=== PATIENT | female | born 1970 | race Caucasian/White ===

== ENCOUNTER 2017-04-11 15:43 | Inpatient (IN) | payer BC ==
[~2017-04-11] VITALS: Ht 162.6 cm; Wt 52.2 kg
[2017-04-11 16:17] VITALS: BP_SYST 132
--- NOTE | 2017-04-11 16:21 | NUR ---
Patient triaged and placed in waiting room. VSS and patient appears in no acute distress at this time. Accompanied by , awaiting available bed, and MD notified of need for MSE.
--- NOTE | 2017-04-11 16:22 | NUR ---
Patient with progessive right eye swelling and redness with green discharge. Patient seen by urgent care given bactrim, vantin and erythromycin with no improvement. seen by Opthomalogist today requesting CT scan
--- NOTE | 2017-04-11 19:10 | NUR ---
Patient to ER bed 7 to gown for evaluation. Side rails up. Report given to Rojas TREVIZO.
[2017-04-11] MEDS ORDERED: IOHEXOL 100 ML IV ONE (19:39)
[2017-04-11] MEDS ORDERED: NACL 0.9% 1,000 ML IV ONE (21:15)
[2017-04-11] MEDS ORDERED: MORPHINE 2 MG/ML INJ. SYRINGE ONE (21:15)
[2017-04-11] MEDS ORDERED: CLINDAMYCIN 300 MG/50 ML D5W 50 ML IV ONE (21:15)
[2017-04-11] MEDS ORDERED: MORPHINE 4 MG/ML INJ. SYRINGE IVP ONE (21:15)
[2017-04-11] MEDS ORDERED: CLINDAMYCIN 600 mg/50mL D5W 50 ML IV ONE (21:16)
[2017-04-11] MEDS ORDERED: ACETAMINOPHEN 325 MG TABLET PO PRN (21:30)
--- NOTE | 2017-04-11 21:32 | NUR ---
Medication reconciliation completed with information provided by patient. Any prior medication reconciliation on file was reviewed and corrected.
[2017-04-11 21:35] LABS: BASOPHILS % (AUTO) 0.7 % (0.0-2.0); EOSINOPHILS # (AUTO) 0.1 K/uL (0.0-0.4); HEMOGLOBIN 9.3 g/dL (12.0-16.0); LYMPHOCYTES # (AUTO) 1.6 K/uL (1.0-5.5); LYMPHOCYTES % (AUTO) 22.7 % (20.5-51.5); MEAN CORPUSCULAR HEMOGLOBIN 22 pg (27-31); MEAN CORPUSCULAR HGB CONC 31 % (32-36); MEAN CORPUSCULAR VOLUME 70 fL (79.0-98.0); MONOCYTES # (AUTO) 0.6 K/uL (0.0-1.0); MONOCYTES % (AUTO) 8.8 % (1.7-9.3); NEUTROPHILS # (AUTO) 4.5 K/uL (1.8-7.7); NEUTROPHILS % (AUTO) 66.8 % (40.0-70.0); PLATELET COUNT (AUTO) 234 K/uL (130-430); RED BLOOD CELL COUNT(AUTO) 4.32 MIL/uL (4.2-6.2); RED CELL DISTRIBUTION WIDTH 17.1 % (9.0-15.0); WHITE BLOOD COUNT (AUTO) 6.8 K/uL (4.8-10.8)
[2017-04-11 21:59] LABS: CALCIUM 9.1 mg/dL (8.4-11.0); CREATININE 1.05 mg/dL (0.55-1.30); POTASSIUM 4.4 mmol/L (3.5-5.1)
[2017-04-11] MEDS ORDERED: cefTRIAXone 2 GM VIAL ONE (22:09)
[2017-04-11 22:14] LABS: ALBUMIN 3.9 g/dL (3.4-4.8); FREE T4 (FREE THYROXINE) 0.5 ng/dL (0.6-1.6); PHOSPHORUS 4.1 mg/dL (2.7-4.5); THYROID STIMULATING HORMONE 1.21 uIu/mL (0.34-4.82); TOTAL BILIRUBIN 0.3 mg/dL (0.0-1.0)
[2017-04-11 22:19] LABS: BILIRUBIN,URINE NEGATIVE (NEGATIVE); BLOOD, URINE TRACE (NEGATIVE); CLARITY/URINE SL HAZY (CLEAR); COLOR,URINE YELLOW (YELLOW); GLUCOSE,URINE NEGATIVE (NEGATIVE); KETONES,URINE TRACE (NEGATIVE); LEUKOCYTE ESTERASE ,URINE NEGATIVE (NEGATIVE); NITRITE, URINE NEGATIVE (NEGATIVE); PROTEIN URINE NEGATIVE (NEGATIVE); UROBILINOGEN,URINE 0.2 (0.2-1.0)
[2017-04-11 22:32] LABS: WBC,URINE 0-3 /HPF (0-3)
[2017-04-11 22:33] LABS: BACTERIA,URINE FEW /HPF (None Seen)
[2017-04-11 22:36] LABS: MUCUS,URINE 3+ /LPF (None Seen)
[2017-04-11 23:30] VITALS: BP_SYST 112
--- NOTE | 2017-04-11 23:30 | NUR ---
pt.admitted via the er-dept.pt.presents general stable status.pt.aaa/ox4.loc.pt.ambulatory;independent. v/s presents stable values w/in normal limits.pt.presents rt.eye infection process.upon assessment, pt.presents tender eye lid;upper,eye presents photophobia reaction.pt.states visual acuity blurred. i inquired if the pt.had presented the flu,common-cold,contact w/ pets,exotic animals,children,people w/infectious skin lesions,pt.stated no to all possibilities.pt.states the symptoms presented self w/in 1 24hr period.will f/u w/.tom's orders.call light/telephone demonstrated to pt;/@bedside. return demonstration satisfactory.
--- NOTE | 2017-04-11 23:30 | NUR ---
Patient will be admitted to care of DR. BRODERICK Admitted to MED SURG unit. Will go to room 124 B. Belongings list completed. Summary report printed. Report will be given at bedside. Transfer to [facility]. IV present no sign or symptom of infiltration.
[2017-04-12] MEDS ORDERED: VANCOMYCIN HCL 1,000 MG in NS 250 ML IV ONE ×2
[2017-04-12] MEDS: NACL 0.9% 1,000 ML IV SCH ×3 (00:51→22:48)
[2017-04-12] MEDS: MORPHINE 2 MG/ML INJ. SYRINGE IVP PRN ×2 (01:05→09:05)
[2017-04-12] MEDS ORDERED: metroNIDAZOLE 500 mg/NS 200 ML IV ONE ×2 (02:08)
[2017-04-12] MEDS ORDERED: VANCOMYCIN HCL 1000 MG/VIAL IV ONE (02:09)
--- NOTE | 2017-04-12 06:45 | NUR ---
pt.assessed.i have continued w/f/u 's orders.i have initiated the administration of the maintanance iv fluids: ns@60ml/hr.i have administered the initial the abx;ivpb's:flagyl,vancomycin.i have administered morphine;2mg ivp x1 pt.stated the morphine was efficatious.i have provided snacks.i have provided a reclinner chair to the .i have reestablished iv access;lt.hand:#24.i have photographed the rt.eye.call light/telephone w/in the pt's reach.
--- NOTE | 2017-04-12 08:00 | NUR ---
OPENING NOTE: RECEIVED REPORT FROM NIGHT NURSE. PATIENT IS RESTING COMFORTABLY IN BED. NO S/S OF DISTRESS OR SOB. PATIENT IS ALERT AND ORIENTED, ABLE TO EXPRESS NEEDS, AND ASK FOR ASSISTANCE. IV IS PATENT AND INFUSING. EYE IS SWOLLEN SHUT, STATES THAT PAIN IS COMING BACK. PATIENT AMBULATED TO THE BATHROOM, STEADY GAIT. VITAL SIGNS WNL, ASSESSMENT COMPLETE. CALL LIGHT IN REACH, BED IN LOWEST POSITION, AND WILL CONTINUE TO MONITOR.
[2017-04-12 08:14] VITALS: BP_SYST 98
[2017-04-12 08:22] LABS: CHOLESTEROL 174 mg/dL (<200); HDL CHOLESTEROL 36 mg/dL (>55); LDL CHOLESTEROL 110 mg/dL (<100); TRIGLYCERIDES 105 mg/dL (30-150)
[2017-04-12] MEDS: LACTOBACILLUS RHAMNOSUS GG 1 CAP CAPSULE PO SCH ×2 (09:04→21:01)
[2017-04-12] MEDS: MULTIVITS,CA,MINERALS/IRON/FA 1 TABLET PO SCH (09:04)
[2017-04-12] MEDS: metroNIDAZOLE 500 mg/NS 200 ML IV SCH ×2 (09:04→21:03)
[2017-04-12] MEDS: DOCUSATE SODIUM 100 MG CAPSULE PO SCH ×2 (09:04→21:01)
[2017-04-12] MEDS: ONDANSETRON HCL 4 MG/2 ML VIAL IVP PRN (09:06)
--- NOTE | 2017-04-12 10:00 | NUR ---
NOTE: PATIENT IS RESTING COMFORTABLY IN BED. NO S/S OF DISTRESS OR SOB. PATIENT IS AWAKE AND ALERT. AT BEDSIDE. NO NEEDS AT THIS TIME. CALL LIGHT IN REACH, BED IN LOWEST POSITION, AND WILL CONTINUE TO MONITOR.
--- NOTE | 2017-04-12 10:04 | NUR ---
Wound Evaluation: Wound Consult ordered for Low Gus Score. Patient evaluated for a Gus score of 22. Patient was awake, alert, oriented, and received in a [place] Bed with an Atmos-Air 9000 mattress. Patient is able to turn in bed independently. Skin is Good (-). Recommend encourage and assist patient as needed with repositioning every 2 hours with pillow support. Perform skin care and monitor skin integrity Q shift. Skin assessment: 1. Right Eye and periorbital area: Appears to be cellulitis, present on admission. Eye has decreased erythema and edema as compared to the admission photo. No odor, scant yellow drainage, calor present. Palpation of yakov-orbital area revealed soft tissue, no induration. Patient is able to open her eye small amount (she was unable to open her eye upon admission). When eye was open, sticky yellow drainage was observed. Maintain treatment will be IV antibiotic therapy. Continue to monitor site for worsening condition. Recommend: Cleanse eye with normal saline. Pat dry around the eye. Apply cold compress to help reduce inflammation 4 times a day, and as needed.
--- NOTE | 2017-04-12 12:00 | NUR ---
NOTE: PATIENT IS RESTING COMFORTABLY IN BED. NO S/S OF DISTRESS OR SOB. PATIENT IS ALERT AND ORIENTED, ABLE TO EXPRESS NEEDS AND ASK FOR ASSISTANCE. IV IS PATENT AND INFUSING. PATIENT CLEANED HER EYE. CALL LIGHT IN REACH, BED IN LOWEST POSITION, AND WILL CONTINUE TO MONITOR.
[2017-04-12 12:03] VITALS: BP_SYST 93
--- NOTE | 2017-04-12 14:00 | NUR ---
NOTE: PATIENT IS RESTING COMFORTABLY IN BED. NO S/S OF DISTRESS OR SOB. PATIENT IS AWAKE AND ALERT. NO NEEDS EXPRESSED AT THIS TIME. CALL LIGHT IN REACH, BED IN LOWEST POSITION, AND WILL CONTINUE TO MONITOR.
[2017-04-12] MEDS: VANCOMYCIN HCL 500 MG in NS 100 ML IV SCH (14:45)
[2017-04-12] MEDS ORDERED: KETOROLAC TROMETHAMINE 15 MG VIAL IVP PRN (15:30)
[2017-04-12] MEDS ORDERED: KETOROLAC TROMETHAMINE 15 MG VIAL IVP ONE (15:30)
[2017-04-12] MEDS ORDERED: ONDANSETRON HCL 4 MG/2 ML VIAL IVP ONE (15:30)
[2017-04-12] MEDS ORDERED: ZOLPIDEM TARTRATE 5 MG TABLET PO PRN (15:30)
[2017-04-12 16:06] VITALS: BP_SYST 127
--- NOTE | 2017-04-12 16:30 | NUR ---
NOTE: PATIENT IS RESTING COMFORTABLY IN BED. NO S/S OF DISTRESS OR SOB. PATIENT IS SLEEPING. NO NEEDS AT THIS TIME. ICE PACKS AT BEDSIDE TO SET UP PATIENT WITH COLD COMPRESSES ONCE AWAKE. CALL LIGHT IN REACH, BED IN LOWEST POSITION, AND WILL CONTINUE TO MONITOR.
--- NOTE | 2017-04-12 18:14 | NUR ---
CLOSING NOTE: PATIENT IS RESTING COMFORTABLY IN BED. NO S/S OF DISTRESS OR SOB. PATIENT IS ALERT AND ORIENTED, ABLE TO EXPRESS NEEDS, AND ASK FOR ASSISTANCE. COLD COMPRESS IS ON. CULTURE COLLECTED AND SENT TO LAB. IV IS PATENT AND INFUSING. CALL LIGHT IN REACH, BED IN LOWEST POSITION, AND WILL GIVE REPORT TO NIGHT NURSE.
--- NOTE | 2017-04-12 18:36 | NUR ---
MED: TALKED TO DOCTOR DAVIE ABOUT PATIENT WANTING SOMETHING FOR SLEEP. PATIENT OKAY TO TAKE MELATONIN FROM HOME, BUT ALSO PUT ORDER IN FOR AMBIEN.
--- NOTE | 2017-04-12 19:36 | NUR ---
INITIAL NOTES RECEIVED REPORT FROM OFFGOING DAYSHIFT NURSE AT THE BEDSIDE. FAMILY IS AT THE BEDSIDE. PATIENT IS AWAKE AND ALERT, RESTING COMFORTABLY IN BED. NO SOB NOTED, NO S/S OF ACUTE DISTRESS, NO COMPLAINTS OF PAIN. EXPLAINED PLAN OF CARE WITH THE PATIENT AND FAMILY. BED IS LOCKED, IN THE LOWEST POSITION. ALL SIDE RAILS ARE CURRENTLY DOWN, FAMILY INFORMED ME THAT THE PLACED THEM DOWN SO THAT THEY CAN HAVE MORE ROOM AROUND THE BED, REFUSED TO RAISE BILATERAL UPPER SIDE RAILS UP AT THIS TIME. INFORMED FAMILY TO RAISE THE BILATERAL UPPER SIDE RAILS UP BEFORE THEY LEAVE. CALL LIGHT IS WITHIN REACH, ENCOURAGED TO CALL FOR ASSISTANCE WHEN NEEDED. WILL CONTINUE WITH PLAN OF CARE.
[2017-04-12 20:00] VITALS: BP_SYST 93
--- NOTE | 2017-04-13 00:26 | NUR ---
PATIENT IS ASLEEP, RESTING COMFORTABLY IN BED. SPOUSE IS AT THE BEDSIDE. BREATHING IS EVEN AND UNLABORED WITH VISIBLE RISE AND FALL OF THE CHEST SEEN. NO SOB NOTED, NO S/S OF ACUTE DISTRESS, NO SIGNS OF PAIN OR FACIAL GRIMACING. IV SITE INTACT, CURRENTLY INFUSING FLUIDS AT THE PRESCRIBED RATE, SEE EMAR FOR DETAILS. BED IS LOCKED, IN THE LOWEST POSITION, WITH BILATERAL UPPER SIDE RAILS UP. CALL LIGHT IS WITHIN REACH. WILL CONTINUE WITH PLAN OF CARE.
[2017-04-13 00:45] VITALS: BP_SYST 92
--- NOTE | 2017-04-13 01:10 | NUR ---
CLEANSED EYE WITH NS AND PAT DRIED WITH GAUZE. REMOVED ANY EXCESS DRAINAGE FROM THE EYES. PATIENT TOLERATED PROCEDURE WELL.
[2017-04-13] MEDS: VANCOMYCIN HCL 500 MG in NS 100 ML IV SCH ×2 (02:11→12:49)
--- NOTE | 2017-04-13 04:24 | NUR ---
PATIENT IS ASLEEP, RESTING COMFORTABLY IN BED. BREATHING IS EVEN AND UNLABORED WITH VISIBLE RISE AND FALL OF THE CHEST. NO SOB NOTED, NO S/S OF ACUTE DISTRESS, NO SIGNS OF PAIN OR FACIAL GRIMACING. IV SITE IS INTACT, DRESSING CLEAN AND DRY, SALINE LOCKED. BED IS LOCKED, IN THE LOWEST POSITION, WITH BILATERAL UPPER SIDE RAILS UP FOR SAFETY. BED ALARM IS ON. CALL LIGHT IS WITHIN REACH. SPOUSE IS AT THE BEDSIDE
[2017-04-13 06:07] LABS: HEMOGLOBIN A1C 5.4 % (4.8-5.6)
--- NOTE | 2017-04-13 06:44 | NUR ---
CLOSING NOTES PATIENT IS ASLEEP, RESTING COMFORTABLY IN BED. NO SOB NOTED, NO S/S OF ACUTE DISTRESS, NO SIGNS OF PAIN OR FACIAL GRIMACING. BREATHING IS EVEN AND UNLABORED. IV SITE INTACT, DRESSING CLEAN AND DRY, CURRENTLY INFUSING FLUIDS AT THE PRESCRIBED RATE, SEE EMAR. BED IS LOCKED, IN THE LOWEST POSITION, WITH 1X SIDE RAILS UP FOR SAFETY. SPOUSE IS SLEEPING ON CHAIR NEXT TO THE BED ON THE SIDE THAT DOES NOT HAVE THE SIDE RAIL UP. FALL AND SAFETY PRECAUTIONS MAINTAINED. ALL NEEDS HAVE BEEN MET DURING THIS SHIFT. WILL ENDORSE CARE TO ONCOMING DAYSHIFT NURSE,
[2017-04-13 06:49] LABS: BASOPHILS % (AUTO) 1.5 % (0.0-2.0); EOSINOPHILS # (AUTO) 0.1 K/uL (0.0-0.4); EOSINOPHILS % (AUTO) 2.9 % (0.0-4.0); HEMOGLOBIN 8.1 g/dL (12.0-16.0); LYMPHOCYTES # (AUTO) 1.2 K/uL (1.0-5.5); LYMPHOCYTES % (AUTO) 37.6 % (20.5-51.5); MEAN CORPUSCULAR HEMOGLOBIN 22 pg (27-31); MEAN CORPUSCULAR HGB CONC 31 % (32-36); MEAN CORPUSCULAR VOLUME 70 fL (79.0-98.0); MONOCYTES # (AUTO) 0.4 K/uL (0.0-1.0); MONOCYTES % (AUTO) 11.7 % (1.7-9.3); NEUTROPHILS # (AUTO) 1.5 K/uL (1.8-7.7); NEUTROPHILS % (AUTO) 46.3 % (40.0-70.0); PLATELET COUNT (AUTO) 161 K/uL (130-430); RED BLOOD CELL COUNT(AUTO) 3.73 MIL/uL (4.2-6.2); RED CELL DISTRIBUTION WIDTH 17.4 % (9.0-15.0); WHITE BLOOD COUNT (AUTO) 3.2 K/uL (4.8-10.8)
[2017-04-13 07:11] LABS: CALCIUM 8.3 mg/dL (8.4-11.0); CREATININE 0.75 mg/dL (0.55-1.30); POTASSIUM 4.7 mmol/L (3.5-5.1)
[2017-04-13 07:16] LABS: PHOSPHORUS 3.6 mg/dL (2.7-4.5)
[2017-04-13] MEDS ORDERED: FLU VACC QS 2017-18(36MOS+)/PF 0.5 ML/SYR SYRINGE I.M. PRN (07:30)
--- NOTE | 2017-04-13 07:55 | NUR ---
INITIAL NOTE: RECEIVED CARE OF PATIENT FROM SHABNAM LANG INTERPRETER RN, IN STABLE CONDITION. PATIENT IS A & O X 4, AMBULATES INDEPENDENTLY. SLEEPING AT BEDSIDE. CALL WEST WITHIN REACH. WILL CONTINUE TO MONITOR.
[2017-04-13 08:34] LABS: T4 (THYROXINE) 8.1 ug/dL (4.5-12.0)
[2017-04-13 08:50] VITALS: BP_SYST 100
[2017-04-13] MEDS: metroNIDAZOLE 500 mg/NS 200 ML IV SCH ×2 (09:03→20:38)
[2017-04-13] MEDS: DOCUSATE SODIUM 100 MG CAPSULE PO SCH ×2 (09:04→20:36)
[2017-04-13] MEDS: LACTOBACILLUS RHAMNOSUS GG 1 CAP CAPSULE PO SCH ×2 (09:04→20:36)
[2017-04-13] MEDS: MULTIVITS,CA,MINERALS/IRON/FA 1 TABLET PO SCH (09:04)
--- NOTE | 2017-04-13 09:15 | NUR ---
MEDICATION PASS: ADMINISTERED SCHEDULED MEDICATIONS TO PT AND ATTENDED TO NEEDS. WILL CONTINUE TO MONITOR.
--- NOTE | 2017-04-13 11:15 | NUR ---
RN ROUNDS: PT RESTING COMFORTABLY IN BED FAMILY AT BEDSIDE. WILL CONTINUE TO MONITOR.
[2017-04-13] MEDS: NACL 0.9% 1,000 ML IV SCH (12:49)
--- NOTE | 2017-04-13 13:15 | NUR ---
RN ROUNDS: PT IN BED WITH FAMILY AT BEDSIDE. IVF INFUSING. WILL CONTINUE TO MONITOR.
--- NOTE | 2017-04-13 15:00 | NUR ---
RN ROUNDS: PT RESTING IN BED. WILL CONTINUE TO MONITOR.
--- NOTE | 2017-04-13 17:00 | NUR ---
RN ROUNDS: PT REQUESTED SHOWER. SL IV AND WRAPPED IN PLASTIC TO PROTECT FROM WATER. GAVE PT CLEAN GOWN, TOWELS AND TOILETRIES AND ESCORTED HER TO SHOWER ROOM. WHILE PATIENT WAS IN THE SHOWER, CHANGED LINENS. WILL CONTINUE TO MONITOR.
[2017-04-13] MEDS: ONDANSETRON HCL 4 MG/2 ML VIAL IVP PRN (19:14)
--- NOTE | 2017-04-13 19:15 | NUR ---
CLOSING NOTES: ADMINISTERED FLU SHOT TO PT. PT DID NOT EAT DINNER. C/O NAUSEA. GAVE PT ZOFRAN IVP AND ENDORSED CARE TO ELASTIC ATTACHER ZIGZAG RNSHABNAM.
--- NOTE | 2017-04-13 19:30 | NUR ---
INITIAL NOTES RECEIVED HANDOFF REPORT FROM NOBLE-JOSELINE AT THE BEDSIDE. SPOUSE IS AT THE BEDSIDE. PATIENT IS AWAKE AND ALERT, RESTING COMFORTABLY IN BED. NO SOB NOTED, NO S/S OF ACUTE DISTRESS, NO COMPLAINTS OF PAIN AT THIS TIME. IV SITE INTACT, DRESSING CLEAN AND DRY, CURRENTLY INFUSING FLUIDS AT THE PRESCRIBED RATE, SEE EMAR. BED IS LOCKED, IN THE LOWEST POSITION, WITH 1X SIDE RAIL UP PER PATIENT AND SPOUSE REQUEST. CALL LIGHT IS WITHIN REACH, ENCOURAGED PATIENT TO CALL FOR ASSISTANCE WHEN NEEDED. WILL CONTINUE WITH PLAN OF CARE.
[2017-04-13 20:00] VITALS: BP_SYST 112
--- NOTE | 2017-04-13 20:00 | NUR ---
OPENING NOTE RECEIVED PATIENT AND BEDSIDE REPORT FROM DAY SHIFT NURSE. PATIENT IS AWAKE AND NON VERBAL. PATIENT IS CONTRACTED BILATERALLY UPPER EXTREMITIES, LOWER EXTREMITIES STIFF WITH FOOT DROP. PATIENT HAS GTUBE INFUSING, G TUBE DRESSING IS CLEAN DRY AND INTACT. AND IV FLUIDS INFUSING. NO RESIDUAL NOTED. FLUSHED WITH FREE WATER. SP CATH INTACT AND DRAINING VIA GRAVITY. PATIENT REPOSITIONED AND SEIZURE PRECAUTIONS OBSERVED. NEEDS ATTENDED, PATIENT KEPT WARM AND COMFORTABLE. Addendum: 04/13/17 at 2543 by Cassia Carr RN WRONG PATIENT
--- NOTE | 2017-04-13 20:25 | NUR ---
ROUNDS NOTE CLAMPED G TUBE, DISCONTINUED SALINE LOCK. NO BELONGINGS. REPORT GIVEN TO AMBULANCE STAFF, KADI. VITAL SIGNS STABLE AT THIS TIME. NO ACUTE DISTRESS AT THIS TIME Addendum: 04/13/17 at 2325 by Cassia Carr RN WRONG PATIENT
--- NOTE | 2017-04-13 20:40 | NUR ---
DISCHARGE NOTE PATIENT LEFT WITH AMBULANCE STAFF. NO SIGNS OF ACUTE DISTRESS. Addendum: 04/13/17 at 6606 by Cassia Carr RN WRONG PATIENT
--- NOTE | 2017-04-13 23:21 | NUR ---
PATIENT IS AWAKE AND ALERT, RESTING COMFORTABLY IN BED. NO SOB NOTED, NO S/S OF ACUTE DISTRESS, NO COMPLAINTS OF PAIN AT THIS TIME. BED IS LOCKED, IN THE LOWEST POSITION, WITH 1X SIDE RAIL UP. SPOUSE IS AT THE BEDSIDE. CALL LIGHT WITHIN REACH. WILL CONTINUE WITH PLAN OF CARE.
[2017-04-14 00:28] VITALS: BP_SYST 91
[2017-04-14] MEDS: VANCOMYCIN HCL 500 MG in NS 100 ML IV SCH ×2 (01:49→14:00)
--- NOTE | 2017-04-14 02:18 | NUR ---
PATIENT IS ASLEEP, RESTING COMFORTABLY IN BED. SPOUSE IS AT THE BEDSIDE. BREATHING IS EVEN AND UNLABORED WITH VISIBLE RISE AND FALL OF THE CHEST SEEN. NO SOB NOTED, NO S/S OF ACUTE DISTRESS, NO SIGNS OF PAIN OR FACIAL GRIMACING. CALL LIGHT WITHIN REACH.
--- NOTE | 2017-04-14 05:20 | NUR ---
IV SITE CAUSED SWELLING IN THE LEFT HAND. PATIENT STATES THAT IT CAUSED DISCOMFORT, AND STATED THAT SHE DOES NOT WANT THAT IV SITE ANYMORE. REMOVED IV SITE PER PATIENT REQUEST. RECONNECTED IV FLUIDS SO THAT IT IS NOT INFUSING IN THE IV SITE THAT IS PRESENT IN THE LEFT AC. LEFT AC IV SITE FLUSHES WELL, DRESSING IS CLEAN DRY AND INTACT.
[2017-04-14] MEDS: NACL 0.9% 1,000 ML IV SCH (06:03)
--- NOTE | 2017-04-14 06:43 | NUR ---
CLOSING NOTES PATIENT IS ASLEEP, RESTING COMFORTABLY IN BED. SPOUSE IS AT THE BEDSIDE. NO SOB NOTED, NO S/S OF ACUTE DISTRESS, NO SIGNS OF PAIN OR FACIAL GRIMACING. BREATHING IS EVEN AND UNLABORED. IV SITE INTACT, DRESSING CLEAN AND DRY, CURRENTLY INFUSING FLUIDS AT THE PRESCRIBED RATE, SEE EMAR FOR DETAILS. BED IS LOCKED, IN THE LOWEST POSITION, WITH 1X SIDE RAILS UP PER SPOUSE REQUEST. FALL AND SAFETY PRECAUTIONS MAINTAINED. ALL NEEDS HAVE BEEN MET DURING THIS SHIFT. WILL ENDORSE CARE TO ONCOMING DAYSHIFT NURSE.
[2017-04-14 07:10] LABS: BASOPHILS # (AUTO) 0.1 K/uL (0.0-0.2); BASOPHILS % (AUTO) 1.3 % (0.0-2.0); EOSINOPHILS # (AUTO) 0.1 K/uL (0.0-0.4); EOSINOPHILS % (AUTO) 3.2 % (0.0-4.0); HEMATOCRIT 25.8 % (36-48); HEMOGLOBIN 8.3 g/dL (12.0-16.0); LYMPHOCYTES # (AUTO) 1.7 K/uL (1.0-5.5); LYMPHOCYTES % (AUTO) 39.6 % (20.5-51.5); MEAN CORPUSCULAR HEMOGLOBIN 22 pg (27-31); MEAN CORPUSCULAR HGB CONC 32 % (32-36); MEAN CORPUSCULAR VOLUME 69 fL (79.0-98.0); MONOCYTES # (AUTO) 0.4 K/uL (0.0-1.0); MONOCYTES % (AUTO) 8.7 % (1.7-9.3); NEUTROPHILS # (AUTO) 2.1 K/uL (1.8-7.7); NEUTROPHILS % (AUTO) 47.2 % (40.0-70.0); PLATELET COUNT (AUTO) 225 K/uL (130-430); RED BLOOD CELL COUNT(AUTO) 3.74 MIL/uL (4.2-6.2); WHITE BLOOD COUNT (AUTO) 4.4 K/uL (4.8-10.8)
[2017-04-14 07:18] LABS: CALCIUM 8.8 mg/dL (8.4-11.0); CREATININE 0.81 mg/dL (0.55-1.30); PHOSPHORUS 4.1 mg/dL (2.7-4.5)
[2017-04-14 08:46] VITALS: BP_SYST 110
[2017-04-14] MEDS: metroNIDAZOLE 500 mg/NS 200 ML IV SCH (08:52)
[2017-04-14] MEDS: LACTOBACILLUS RHAMNOSUS GG 1 CAP CAPSULE PO SCH (08:52)
[2017-04-14] MEDS: DOCUSATE SODIUM 100 MG CAPSULE PO SCH ×2 (08:52→09:00)
[2017-04-14] MEDS: MULTIVITS,CA,MINERALS/IRON/FA 1 TABLET PO SCH (08:52)
[2017-04-14] MEDS: ONDANSETRON HCL 4 MG/2 ML VIAL IVP PRN (09:09)
--- NOTE | 2017-04-14 09:15 | NUR ---
MEDICATION PASS: PATIENT STATED SHE WAS FEELING NAUSEATED. ZOFRAN 4MG IVP GIVEN ALSO WITH SCHEDULED MEDICATIONS. PT REFUSED COLACE STATING SHE HAD HAD LIQUID DIARRHEA X 1 IN A.M. WILL CONTINUE TO MONITOR.
--- NOTE | 2017-04-14 09:20 | NUR ---
PT HAVING DIARRHEA: PT HAD DIARRHEA AGAIN, LARGE AMOUNT, LIQUID BROWN. NO FOUL ODOR. WILL NOTIFY .
--- NOTE | 2017-04-14 11:15 | NUR ---
RN ROUNDS: PT RESTING COMFORTABLY IN BED. DENIES ANY FURTHER DIARRHEA. AT BEDSIDE. WILL CONTINUE TO MONITOR.
--- NOTE | 2017-04-14 13:15 | NUR ---
RN ROUNDS: PT RESTING COMFORTABLY IN BED WITH SPOUSE AT BEDSIDE. WILL CONTINUE TO MONITOR.
[2017-04-14] MEDS ORDERED: METR500T PO (14:09)
[2017-04-14] MEDS ORDERED: CLIN-77 PO (14:09)
[2017-04-14] MEDS ORDERED: SULF1TAB48 PO (14:09)
--- NOTE | 2017-04-14 14:48 | NUR ---
PT TRANSITIONING TO HOME: PER DR. BRODERICK, PT DOES NOT NEED FINAL DOSE OF VANCO, SINCE PT GOING HOME WITH WRITTEN SCRIPT FOR ANTIBIOTICS. OK TO DC HOME. WILL PROCESS PAPERWORK. Addendum: 04/14/17 at 1453 by Peggy Peguero RN DR. BRODERICK NOTIFIED OF DIARRHEA X 2, PT DENIED HAVING ANY FURTHER DIARRHEA, NO CRAMPING, NO N/V. NO CHANGES IN ORDERS, PER DR. BRODERICK.
[2017-04-14 16:09] VITALS: BP_SYST 134
[2017-04-14] MEDS ORDERED: ONDA4TAB5 PO (16:31)
--- NOTE | 2017-04-14 16:45 | NUR ---
CLOSING NOTE: ALL TRANSITION TO HOME PAPERWORK PROCESSED. PT GIVEN SCRIPTS FOR ANTIBIOTICS AND ZOFRAN PRN. PT AND SPOUSE VERBALIZED UNDERSTANDING. PERIPHERAL IV LINE DC'D. PT TOLERATED WELL. PT REQUESTED TO AMBULATE TO CAR. ESCORTED PATIENT TO VEHICLE WITH AT HER SIDE.
[2017-04-14] MEDS ORDERED: VANCOMYCIN HCL 1,000 MG in NS 250 ML IV SCH (18:00)
== END 2017-04-14 16:50 | disposition home or self-care (01) | DRG 603 ==
LOC: SED 16:32 → SMU 21:36
PROVIDERS: ADMIT Family Medicine; ATTEND Family Medicine
DX: L03.213 Periorbital cellulitis (principal); D63.8 Anemia in other chronic diseases classified elsewhere; Z88.0 Allergy status to penicillin
CPT/HCPCS: 36415; 70487; 80048; 80053; 80061; 80202-TC; 81000-TC; 82150-TC; 83036; 83605; 83690-TC; 83735-TC; 83880; 84100-TC; 84436; 84439; 84443-TC; 84479; 85025; 87040-TC; 87070-TC; 96365; 96375; 99285; J0696; J1885; J2270; J2405; J3370; J3490; J7030; J7050; J7060; Q2037; Q9967

== ENCOUNTER 2017-06-21 19:45 | Emergency (ER) | payer BC ==
[~2017-06-21] VITALS: Ht 167.6 cm; Wt 68.0 kg
[~2017-06-21 19:45] MED LIST: CLIN-77 PO; METR500T PO; ONDA4TAB5 PO; SULF1TAB48 PO
[2017-06-21 19:51] VITALS: BP_SYST 133
--- NOTE | 2017-06-21 20:40 | NUR ---
Patient to ER bed 07 to gown for evaluation. Side rails up. Will assume care
--- NOTE | 2017-06-21 20:42 | NUR ---
Patient brought in with son complaining of left upper back pain 01/16 starting today. Pain with inspiration. Patient has full range of motion. Denies any trauma. Patient states she has been taking Motrin 800 mg with no relief. No other complaints/injuries per patient or as noted. Will continue to monitor.
--- NOTE | 2017-06-21 20:46 | NUR ---
CHILO Serrato at bedside examining patient.
[2017-06-21] MEDS ORDERED: ACETAMINOPHEN/CODEINE 300 MG-30 MG TABLET PO ONE (21:45)
--- NOTE | 2017-06-21 21:45 | NUR ---
Patient requesting pain medication. Refusing Tylenol #3 because Codeine makes her sick would like ibuprofen. notified
[2017-06-21] MEDS ORDERED: IBUPROFEN 800 MG TABLET PO ONE (22:00)
[2017-06-21 23:17] VITALS: BP_SYST 133
--- NOTE | 2017-06-21 23:17 | NUR ---
Patient given verbal discharge instructions and verbalizes understanding. ER MD discussed with patient the results and treatment provided. Patient in stable condition. ID arm band removed. Rx of Motrin not given. Patient educated on pain management and to follow up with PMD in 2-3 days. Pain Scale 0/10 Opportunity for questions provided and answered.Patient left without signing discharge papers.
== END 2017-06-21 23:17 | disposition home or self-care (01) ==
LOC: SED 19:45
DX: M54.6 Pain in thoracic spine (principal); R03.0 Elevated blood-pressure reading, without diagnosis of hypertension; Z88.0 Allergy status to penicillin
CPT/HCPCS: 36415; 71045; 71250-TC; 85379; 99285